=== PATIENT | female | born 1985 | race Caucasian/White ===

== ENCOUNTER 2021-10-21 19:00 | Inpatient (IN) | payer BC ==
[2021-10-21] MEDS ORDERED: Ondansetron PF 4 MG/2 ML Vial IVP PRN (19:37)
[2021-10-21] MEDS ORDERED: NS w/ Oxytocin 30 units 500 ML IV SCH (19:37)
[2021-10-21] MEDS ORDERED: Misoprostol 200 MCG TAB PR PRN (19:37)
[2021-10-21] MEDS ORDERED: Promethazine HCl 25 MG/ML VIAL IM PRN (19:37)
[2021-10-21] MEDS ORDERED: Acetaminophen 500 MG TAB PO PRN (19:37)
[2021-10-21] MEDS ORDERED: Carboprost 250 MCG/ML AMP IM PRN (19:37)
[2021-10-21] MEDS ORDERED: Butorphanol Tartrate 1 MG/ML VIAL SLOW IVP PRN (19:37)
[2021-10-21] MEDS ORDERED: Ibuprofen 800 MG TAB PO PRN (19:37)
[2021-10-21] MEDS ORDERED: Methylergonovine 0.2 MG/ML VIAL IM PRN (19:37)
[2021-10-21] MEDS ORDERED: HYDROcodone/Acetaminophen 5/325 mg Tablet PO PRN ×2 (19:37)
[2021-10-21] MEDS ORDERED: hydrALAZINE 20 MG/ML VIAL SLOW IVP PRN (19:37)
[2021-10-21] MEDS ORDERED: Lidocaine 1% (PF) 30 ML VIAL SC PRN (19:37)
[2021-10-21 20:02] VITALS: BMI 48.9
[2021-10-21 20:21] LABS: Hemoglobin 11.4 g/dL (12.0-15.5); Mean Corpuscular HGB CONC 35.3 g/dL (32.0-36.0); Mean Corpuscular Hemoglobin 31.5 pg (27.0-33.0); Mean Corpuscular Volume 89.2 fl (81.6-98.3); Mean Platelet Volume 9.8 fl (7.4-10.4); Platelet Count 208 10x3/uL (150-450); RBC Distribution Width 13.4 % (11.5-14.5); Red Blood Cell (RBC) Count 3.62 10x6/uL (3.90-5.03); White Blood Cell (WBC) Count 12.7 10x3/uL (3.5-10.5)
[2021-10-21 20:45] LABS: HBSAg Index 0.15 S/CO (0-0.99); Hep B Surf Ag Non-Reactive S/CO (NonReactive); Syphilis Antibody Nonreactive (Nonreactive); Syphilis Antibody Index 0.03 S/CO (<1.00 Non-Reactive)
[2021-10-21] MEDS: Misoprostol 100 MCG TAB VAG SCH (20:58)
[2021-10-22] MEDS: Misoprostol 100 MCG TAB VAG SCH ×3 (00:02→11:04)
[2021-10-22] MEDS: NS w/ Oxytocin 30 units 500 ML IV SCH ×2 (05:07→11:09)
[2021-10-22] MEDS ORDERED: Bisacodyl 10 MG SUPP PR PRN (09:32)
[2021-10-22] MEDS ORDERED: hydrALAZINE 20 MG/ML VIAL SLOW IVP PRN (09:32)
[2021-10-22] MEDS ORDERED: Benzocaine-Menthol 82.5 ML CAN TOP PRN (09:32)
[2021-10-22] MEDS ORDERED: Milk Of Magnesia 30 ML UDCUP PO PRN (09:32)
[2021-10-22] MEDS ORDERED: Preparation H Ointment 28 GM TUBE PR PRN (09:32)
[2021-10-22] MEDS ORDERED: Misoprostol 200 MCG TAB VAG PRN (09:32)
[2021-10-22] MEDS ORDERED: Lanolin Ointment 7 GM TUBE TOP PRN (09:32)
[2021-10-22] MEDS ORDERED: traMADol HCl 50 MG TAB PO PRN (09:32)
[2021-10-22] MEDS: Lactated Ringer's 1,000 ML IV SCH (11:03)
[2021-10-22] MEDS ORDERED: Ferrous Sulfate 325 MG TAB PO SCH (17:00)
[2021-10-22] MEDS: Ibuprofen 800 MG TAB PO SCH ×2 (19:28→20:55)
[2021-10-22] MEDS: Docusate 100 MG CAP PO SCH (20:55)
[2021-10-23] MEDS: Ibuprofen 800 MG TAB PO SCH ×2 (06:25→14:41)
[2021-10-23 07:39] VITALS: BP 110/58; TEMP 97.8
[2021-10-23] MEDS: Docusate 100 MG CAP PO SCH (09:59)
== END 2021-10-23 21:00 | disposition home or self-care (01) | DRG 807 ==
LOC: CSHLD 19:06 → CSHPP 10-22 12:25
PROVIDERS: ADMIT Obstetrics & Gynecology; ATTEND Obstetrics & Gynecology
PROC: 10E0XZZ Delivery of Products of Conception, External Approach (ICD-10-PCS; principal; 2021-10-22)
DX: O99.284 Endocrine, nutritional and metabolic diseases complicating childbirth (principal); Z37.0 Single live birth; Z3A.39 39 weeks gestation of pregnancy; Z86.711 Personal history of pulmonary embolism; O70.1 Second degree perineal laceration during delivery
CPT/HCPCS: 36415; 85027; 86780; 86850; 86900; 86901; 87340; J2590